=== PATIENT | female | born 1975 | race Caucasian/White ===

== ENCOUNTER → 2016-06-28 | Outpatient (CLI) | payer BC ==
[~2016-06-28] MED LIST: ALBU18002 INH; BUPR-83 PO; LEVO75TA5 PO; LORA-741 PO; NAPR-1169 PO; OXYC1TAB3 PO; PARO1TAB29 PO
== END | disposition home or self-care (01) ==
LOC: C.PAPS 08:35
PROVIDERS: ATTEND Obstetrics & Gynecology
DX: Z01.419 Encounter for gynecological examination (general) (routine) without abnormal findings (principal)

== ENCOUNTER → 2016-07-29 | Outpatient (CLI) | payer BC ==
[2016-07-29 16:47] LABS: BLOOD UREA NITROGEN 11 mg/dl (7-18); CALCIUM 9.4 mg/dl (8.5-10.1); CARBON DIOXIDE 26 mmol/L (21-32); CHLORIDE 108 mmol/L (98-107); GLUCOSE 93 mg/dl (70-99); POTASSIUM 3.9 mmol/L (3.5-5.1); SODIUM 141 mmol/L (136-145)
== END | disposition home or self-care (01) ==
LOC: C.LABBFT 12:22
PROVIDERS: ATTEND Physician Assistant Medical
DX: E03.9 Hypothyroidism, unspecified (principal); R63.5 Abnormal weight gain

== ENCOUNTER 2016-08-18 22:28 | Emergency (ER) | payer BC ==
[~2016-08-18 22:28] MED LIST changes: -ALBU18002 INH; -BUPR-83 PO; -LEVO75TA5 PO; -OXYC1TAB3 PO; -PARO1TAB29 PO
[2016-08-18 22:34] VITALS: TEMP 36.9; Ht 152.4 cm
[2016-08-18] MEDS ORDERED: KETOROLAC TROMETHAMINE 30 MG/ML VIAL IV STA (22:46)
[2016-08-18] MEDS ORDERED: ONDANSETRON INJ 2 MG/ML 2 ML VIAL IV STA (22:46)
[2016-08-18] MEDS ORDERED: SODIUM CHLORIDE 0.9% 1000ML 1,000 ML IV STA (22:46)
[2016-08-18 23:16] LABS: HEMATOCRIT 36.9 % (37-47); MEAN CELL VOLUME 85.4 fL (80-100); MEAN CORPUSCULAR HGB CONC 32.8 g/dl (32-36); MEAN PLATELET VOLUME 10.7 fL (7.4-10.4); PLATELET COUNT 281 K/uL (130-400); RED BLOOD COUNT 4.32 M/uL (4.2-5.4); WHITE BLOOD COUNT 8.08 K/uL (4.8-10.8)
[2016-08-18] MEDS ORDERED: PARO1TAB29 PO (23:17)
[2016-08-18] MEDS ORDERED: BUPR-83 PO (23:17)
[2016-08-18] MEDS ORDERED: ALBU18002 INH (23:17)
[2016-08-18] MEDS ORDERED: LEVO75TA5 PO (23:17)
[2016-08-18] MEDS: MoRPHine SULFATE 10 MG/ML CARP/VIAL IV PRN (23:20)
--- NOTE | 2016-08-18 23:23 | EMERGENCY ROOM VISIT NOTE ---
History Report prepared by Tim: Jaron Dyer Under the Supervision of: Dr. Jus Echevarria M.D. First contact with patient: 22:42 Chief Complaint: FLANK PAIN Stated Complaint: R SIDE PAIN INTO LOWER BACK History of Present Illness The patient is a 41 year old female who presents to the Emergency Room with complaints of constant right flank pain beginning 3.5 hours ago. She states "it feels like labor pains". She states that her pain is improved with pressure. The patient states that the pain radiates into her abdomen occasionally, but she denies any radiation into her groin. Her pain is worsened with movement. She denies any urinary symptoms, vomiting, or nausea. She notes that she is sweating a lot. The patient is unsure if she has a family history of kidney stones. She has no personal kidney problems, or history of diabetes. She denies any known trauma. The patient has taken Aleve for her pain, but has seen no relief. She notes that she has a history of low back pain beginning two years ago generally associated with her menstrual cycle. Her LNMP was very recent. The patient states that she was sitting and doing nothing when her pain began. She has a history of a tubal ligation. Source of History: patient Onset: 3.5 hours ago Position: other (right flank) Timing: constant Modifying Factors (Worsening): movement Modifying Factors (Relieving): other (pressure) Associated Symptoms: No nausea, No urinary symptoms, No vomiting Note: The patient complains of pain radiating into her abdomen occasionally. Review of Systems See HPI for pertinent positives & negatives. A total of 10 systems reviewed and were otherwise negative. Past Medical & Surgical Medical Problems: (1) Depression Family History Patient reports no known family medical history. Social History Smoking Status: Never Smoker Alcohol Use: none Drug Use: none Occupation Status: employed Current/Historical Medications Scheduled Bupropion (Wellbutrin), 100 MG PO QAM Levothyroxine Sodium (Levothyroxine Sodium), 75 MCG PO QAM Paroxetine (Paxil), 40 MG PO QAM Scheduled PRN Albuterol Sulfate (Proair Respiclick), 2 PUFFS INH DAILY PRN for Shortness of Breath Oxycodone Ir (Roxicodone Ir), 1-2 TAB PO Q4H PRN for Pain Allergies Coded Allergies: No Known Allergies (Unverified , 08/18/16) Physical Exam Vital Signs Date Time Temp Pulse Resp B/P Pulse Ox O2 Delivery O2 Flow Rate FiO2 08/19/16 01:33 84 22 136/66 96 Room Air 08/19/16 00:40 87 22 155/103 95 Room Air 08/18/16 22:34 36.9 89 24 136/85 94 Room Air Physical Exam GENERAL: Patient is in moderate distress secondary to pain. HEENT: No acute trauma, normocephalic atraumatic, mucous membranes moist, no nasal congestion, no scleral icterus. NECK: No stridor, no adenopathy, no meningismus, trachea is midline. LUNGS: Clear to auscultation bilaterally, no wheeze, no rhonchi, breath sounds equal. HEART: Without murmurs gallops or rubs, regular rate and rhythm. ABDOMEN: Soft, nontender, bowel sounds positive, no hernias, no peritonitis. BACK: Right lumbar muscle spasm with tenderness to palpation. Pain worsens with movement. No flank tenderness to percussion. EXTREMITIES: No cyanosis or edema, full range of motion of all the joints without pain or difficulty, no signs for acute trauma. NEUROLOGIC: Oriented x 3, no acute motor or sensory deficits, no focal weakness. SKIN: No rash, no jaundice, no diaphoresis. Medical Decision & Procedures ER Provider Diagnostic Interpretation: One View Chest X-ray interpreted by me: No pneumonia, mediastinal widening or free air. Elevated right deangelo-diaphragm. US results per statrad and my review. US RENAL: Left kidney is unremarkable. Left urinary jet seen. There is at least mild right hydroureter. Mid-distal right ureter not visualized due to overlying hilda gas. Right urinary jet not visualized. Abdominal and pelvis CT: There is a 2 mm stone at the right UV junction. There is some post obstructive change. Laboratory Results 08/18/16 23:00 08/18/16 23:00 Test 08/18/16 23:00 08/18/16 23:05 Red Blood Count 4.32 M/uL (4.2-5.4) Mean Corpuscular Volume 85.4 fL (80-100) Mean Corpuscular Hemoglobin 28.0 pg (25-34) Mean Corpuscular Hemoglobin Concent 32.8 g/dl (32-36) RDW Standard Deviation 46.1 fL (36.4-46.3) RDW Coefficient of Variation 14.6 % (11.5-14.5) Mean Platelet Volume 10.7 fL (7.4-10.4) Anion Gap 8.0 mmol/L (3-11) Estimated GFR () 64.1 Estimated GFR (Non- 55.3 BUN/Creatinine Ratio 11.6 (10-20) Calcium Level 8.6 mg/dl (8.5-10.1) Total Bilirubin 0.2 mg/dl (0.2-1) Aspartate Amino Transf (AST/SGOT) 16 U/L (15-37) Alanine Aminotransferase (ALT/SGPT) 24 U/L (12-78) Alkaline Phosphatase 74 U/L (45-117) Total Protein 6.5 gm/dl (6.4-8.2) Albumin 3.4 gm/dl (3.4-5.0) Globulin 3.1 gm/dl (2.5-4.0) Albumin/Globulin Ratio 1.1 (0.9-2) Lipase 144 U/L (73-393) Urine Color YELLOW Urine Appearance TURBID (CLEAR) Urine pH 6.0 (4.5-7.5) Urine Specific [place] 1.025 (1.000-1.030) Urine Protein NEG (NEG) Urine Glucose (UA) NEG (NEG) Urine Ketones TRACE (NEG) Urine Occult Blood 3+ (NEG) Urine Nitrite NEG (NEG) Urine Bilirubin NEG (NEG) Urine Urobilinogen NEG (NEG) Urine Leukocyte Esterase NEG (NEG) Urine WBC (Auto) 10-30 /hpf (0-5) Urine RBC (Auto) 0-4 /hpf (0-4) Urine Hyaline Casts (Auto) 0 /lpf (0-5) Urine Epithelial Cells (Auto) >30 /lpf (0-5) Urine Bacteria (Auto) 2+ (NEG) Urine Pathogenic Casts /lpf (0) Urine Yeast (Auto) (NONE PRSENT) Laboratory results reviewed by me. Medications Administered Medications (Trade) Dose Ordered Sig/Umu Route Start Time Stop Time Status Last Admin Dose Admin Ondansetron HCl 4 mg 4 mg NOW STAT IV 08/18/16 22:46 08/18/16 22:49 DC 08/18/16 23:20 4 MG Sodium Chloride (Nss 1000ml) 1,000 ml @ 999 mls/hr Q1H1M STAT IV 08/18/16 22:46 08/18/16 23:46 DC 08/18/16 23:21 999 MLS/HR Morphine Sulfate (MoRPHine SULFATE INJ) 6 mg Q15M PRN IV 08/18/16 23:00 09/01/16 22:59 08/19/16 00:45 6 MG Ketorolac Tromethamine (Toradol Inj) 30 mg NOW STAT IV 08/18/16 22:46 08/18/16 22:49 DC 08/18/16 23:20 30 MG ED Course 3: The patient was evaluated in room B11B. A complete history and physical exam was performed. 2245: Ordered Toradol Inj 30 mg IV, Sodium Chloride 1000 ml @ 999 mls/hr IV, Zofran Inj 4 mg IV. 0: Ordered Morphine Sulfate 6 mg IV. Medical Decision The patient is a 41 year old female who presents to the ED with complaints of right flank pain. Differential diagnoses considered include musculoskeletal pain, nerve impingement, herpes zoster, pyelonephritis, pancreatitis, biliary colic, and renal colic. There is no leukocytosis or concerning anemia. No significant electrolyte abnormality, kidney failure or hepatitis. There is no pancreatitis. Urinalysis shows some contamination and hematuria, no infection. Renal ultrasound shows right-sided hydronephrosis suggestive of ureteral obstruction. Abdominal and pelvis CT shows a small 2 mm distal right ureteral stone. Chest x-ray does not show any pneumonia or free air, there was no mediastinal widening. The patient received IV saline, IV Zofran and IV Toradol. She was given IV morphine. She is more comfortable. The patient has renal colic. She is comfortable currently and would like to be discharged home. She will strain all her urine. Motrin and Tylenol for pain, oxycodone for severe pain, stool softeners were suggested. The patient will stay well-hydrated. She will follow with her doctors office for a possible urology referral. She can return here for fever, vomiting or uncontrolled pain. [place] Drug Monitoring Program Search Results: patient reviewed within database, no issues identified Impression Primary Impression: Renal colic Additional Impressions: Hydronephrosis, right Hematuria Scribe Attestation The scribe's documentation has been prepared under my direction and personally reviewed by me in its entirety. I confirm that the note above accurately reflects all work, treatment, procedures, and medical decision making performed by me. Departure Information Dispostion Home / Self-Care Prescriptions Oxycodone Ir (Roxicodone Ir) 5 Mg Tab 1-2 TAB PO Q4H Y for Pain, #15 TAB Prov: Jus Echevarria M.D. 08/19/16 Referrals No Doctor, Assigned (PCP) Patient Instructions [facility] Problem Qualifiers
[2016-08-18 23:32] LABS: ALT/SGPT 24 U/L (12-78); AST/SGOT 16 U/L (15-37); BLOOD UREA NITROGEN 14 mg/dl (7-18); BUN/CREATININE RATIO 11.6 (10-20); CALCIUM 8.6 mg/dl (8.5-10.1); CARBON DIOXIDE 27 mmol/L (21-32); CHLORIDE 111 mmol/L (98-107); GLUCOSE 111 mg/dl (70-99); POTASSIUM 3.9 mmol/L (3.5-5.1); SODIUM 146 mmol/L (136-145)
[2016-08-18 23:34] LABS: URINE APPEARANCE TURBID (CLEAR); URINE BILIRUBIN NEG (NEG); URINE COLOR YELLOW; URINE EPITHELIAL CELL AUTO >30 /lpf (0-5); URINE NITRITE NEG (NEG); URINE SPECIFIC GRAVITY 1.025 (1.000-1.030); UROBILINOGEN NEG (NEG); ZZUR CULT IF INDIC CLEAN CATCH YES
[2016-08-18 23:35] LABS: ALB/GLOB RATIO 1.1 (0.9-2); ALKALINE PHOSPHATASE 74 U/L (45-117)
[2016-08-18 23:37] LABS: MANUAL MICROSCOPIC REQUIRED? NO; REVIEW REQ? YES
[2016-08-19] MEDS: MoRPHine SULFATE 10 MG/ML CARP/VIAL IV PRN (00:45)
[2016-08-19] MEDS ORDERED: OXYC1TAB3 PO (02:06)
[2016-08-19] MEDS ORDERED: OXYCODONE IR HOME PACK PO ONE (02:15)
[2016-08-19 02:22] VITALS: BP 135/62; PULSE 85; O2SAT 98
--- NOTE | 2016-08-19 07:21 | DIAGNOSTIC IMAGING REPORT ---
RENAL ULTRASOUND HISTORY: Right FLANK PAIN COMPARISON: None. FINDINGS: Right kidney: 10.8 cm. Mild hydroureteronephrosis. Normal corticomedullary differentiation and cortical thickness. Left kidney: 10.1 cm. No hydronephrosis. Normal corticomedullary differentiation and cortical thickness. Bladder: No bladder wall thickening. Only the left ureteral jet was identified. IMPRESSION: Mild right hydroureteronephrosis. The right ureteral jet was not identified. Electronically signed by: Santi Quezada M.D. 08/19/2016 7:20 AM Dictated Date/Time: 08/19/2016 7:15 AM
--- NOTE | 2016-08-19 07:32 | DIAGNOSTIC IMAGING REPORT ---
ABDOMEN AND PELVIS CT WITHOUT CONTRAST CT DOSE: 1952.03 mGy.cm HISTORY: EVALUATE FLANK PAIN/HEMATURIA TECHNIQUE: Multiaxial CT images of the abdomen and pelvis were performed without the use of intravenous and oral contrast according to the standard department stone protocol. COMPARISON STUDY: Renal ultrasound 08/18/2016. FINDINGS: The lung bases are clear. Cholecystectomy. The unenhanced liver, spleen, adrenal glands, and pancreas are unremarkable. Normal left kidney. There is a 2 mm stone at the right ureterovesical junction resulting in mild right hydronephrosis. The uterus and ovaries are unremarkable. A few colonic diverticula. No bowel wall thickening or obstruction. Normal appendix. IMPRESSION: A 2 mm stone within the right ureterovesical junction resulting in mild right hydronephrosis. Electronically signed by: Santi Quezada M.D. 08/19/2016 7:30 AM Dictated Date/Time: 08/19/2016 7:28 AM
--- NOTE | 2016-08-19 08:13 | DIAGNOSTIC IMAGING REPORT ---
CHEST ONE VIEW PORTABLE HISTORY: FLANK PAIN/HEMATURIA COMPARISON: None. FINDINGS: Mild elevation of the right hemidiaphragm. The heart is normal in size. No pleural effusions. No pneumothorax. The lungs are clear. IMPRESSION: Mild elevation of the right hemidiaphragm. Otherwise, no acute process within the chest. Electronically signed by: Santi Quezada M.D. 08/19/2016 8:12 AM Dictated Date/Time: 08/19/2016 8:11 AM
== END 2016-08-19 02:20 | disposition home or self-care (01) ==
LOC: C.EDB 22:29
DX: N23 Unspecified renal colic (principal); N13.30 Unspecified hydronephrosis; R31.9 Hematuria, unspecified; N20.1 Calculus of ureter; M62.830 Muscle spasm of back; F32.9 Major depressive disorder, single episode, unspecified; Z98.51 Tubal ligation status

== ENCOUNTER → 2017-06-29 | Outpatient (CLI) | payer BC ==
[~2017-06-29] MED LIST changes: +ALBU18002 INH; +BUPR-83 PO; +LEVO75TA5 PO; -LORA-741 PO; -NAPR-1169 PO; +PARO1TAB29 PO
== END | disposition home or self-care (01) ==
LOC: C.PAPS 18:24
PROVIDERS: ATTEND Obstetrics & Gynecology
DX: Z01.419 Encounter for gynecological examination (general) (routine) without abnormal findings (principal)

== ENCOUNTER → 2017-08-02 | Outpatient (CLI) | payer BC ==
[2017-08-02 17:26] LABS: ALBUMIN 3.8 gm/dl (3.4-5.0); ALT/SGPT 35 U/L (12-78); AST/SGOT 21 U/L (15-37); BLOOD UREA NITROGEN 13 mg/dl (7-18); CALCIUM 8.8 mg/dl (8.5-10.1); CARBON DIOXIDE 26 mmol/L (21-32); CREATININE 1.15 mg/dl (0.60-1.20); GLUCOSE 106 mg/dl (70-99); POTASSIUM 4.3 mmol/L (3.5-5.1); SODIUM 140 mmol/L (136-145)
[2017-08-02 17:37] LABS: ALKALINE PHOSPHATASE 78 U/L (45-117); TOTAL PROTEIN 7.4 gm/dl (6.4-8.2)
[2017-08-03 06:37] LABS: HEMOGLOBIN A1C 5.5 % (4.5-5.6)
== END | disposition home or self-care (01) ==
LOC: C.LABBFT 12:12
PROVIDERS: ATTEND Family Medicine
DX: E03.9 Hypothyroidism, unspecified (principal); R73.01 Impaired fasting glucose

== ENCOUNTER → 2017-08-08 | Outpatient (CLI) | payer BC ==
[~2017-08-08] VITALS: Ht 152.4 cm; Wt 252.8 kg
[2017-08-08 12:40] VITALS: BP 122/85; PULSE 93; Ht 152.4 cm; Wt 252.8 kg
== END | disposition home or self-care (01) ==
LOC: C.NEUR 12:29
PROVIDERS: ATTEND Internal Medicine Pulmonary Disease
DX: G47.30 Sleep apnea, unspecified (principal); E66.01 Morbid (severe) obesity due to excess calories; G25.81 Restless legs syndrome; R53.83 Other fatigue

== ENCOUNTER → 2017-08-08 | Outpatient (CLI) | payer BC | END | disposition home or self-care (01) | LOC: C.LABBFT 08:51 | PROVIDERS: ATTEND Physician Assistant Medical | DX: E78.5 Hyperlipidemia, unspecified (principal) ==